=== PATIENT | female | born 1995 | race Caucasian/White ===

== ENCOUNTER 2017-02-02 07:11 | Emergency (ER) | payer BC ==
[2017-02-02 07:23] VITALS: BP 120/74
[2017-02-02] MEDS ORDERED: Cephalexin CAP* 500 MG PO ONE (07:40)
[2017-02-02] MEDS ORDERED: Phenazopyridine TAB* 100 MG PO ONE (07:41)
--- NOTE | 2017-02-02 07:49 | UC ---
Complaint Female HPI - HPI Summary HPI Summary: 21 yo female with dysuria/urgency and frequency x 3 days no f/c no n/v no back or abd pain no vag d/c or itch last year was hospitalized for pyelo - History Of Current Complaint Chief Complaint: UCGU Stated Complaint: URINARY COMPLAINT Time Seen by Provider: 02/02/17 07:23 Hx Obtained From: Patient Hx Last Menstrual Period: 01/17/17 Onset/Duration: Gradual Onset, Lasting Days Timing: Intermittent, Lasting Minutes Severity Initially: Moderate Severity Currently: None Pain Intensity: 0 - terminal dysuria only Pain Scale Used: 0-10 Numeric Character: Burning Aggravating Factor(s): Urination Alleviating Factor(s): Nothing Associated Signs And Symptoms: Negative: Fever, Back Pain, Vaginal Discharge, Nausea - Allergies/Home Medications Allergies/Adverse Reactions: Allergies Allergy/AdvReac Type Severity Reaction Status Date / Time No Known Allergies Allergy Verified 02/02/17 07:23 Home Medications: Home Medications Lisdexamfetamine (NF) [Vyvanse (NF)] 70 mg PO DAILY 02/02/17 [History Confirmed 02/02/17] Norgestimate-Ethinyl Estradiol [Sprintec 28 0.25-35 mg-Mcg] 1 tab PO DAILY 02/02 [History Confirmed 02/02/17] PMH/Surg Hx/FS Hx/Imm Hx Previously Healthy: Yes GI/ History: Other Other GI/ History: pyelo x 1 - Surgical History Surgical History: Yes Surgery Procedure, Year, and Place: knee surgeries - Family History Known Family History: Positive: Hypertension - Social History Alcohol Use: Occasionally Substance Use Type: None Smoking Status (MU): Never Smoked Tobacco - Immunization History Most Recent Influenza Vaccination: no Review of Systems Constitutional: Negative Skin: Negative Eyes: Negative ENT: Negative Respiratory: Negative Cardiovascular: Negative Gastrointestinal: Negative Genitourinary: Dysuria, Frequency, Urgency Motor: Negative Neurovascular: Negative Musculoskeletal: Negative Neurological: Negative Psychological: Negative Is Patient Immunocompromised?: No All Other Systems Reviewed And Are Negative: Yes Physical Exam Triage Information Reviewed: Yes Appearance: Well-Appearing, No Pain Distress, Well-Nourished Vital Signs: Initial Vital Signs Temp 97.8 F 02/02/17 07:18 Pulse 68 02/02/17 07:18 Resp 14 02/02/17 07:18 BP 120/74 02/02/17 07:18 Pulse Ox 100 02/02/17 07:18 Vital Signs Reviewed: Yes Eyes: Positive: Conjunctiva Clear ENT: Positive: Hearing grossly normal. Negative: Nasal congestion, Nasal drainage, Tonsillar exudate, Trismus, Muffled/hoarse voice Neck: Positive: Supple, Nontender Respiratory: Positive: Lungs clear, Normal breath sounds, No respiratory distress Cardiovascular: Positive: RRR, No Murmur Abdomen Description: Positive: Nontender, No Organomegaly. Negative: CVA Tenderness (R), CVA Tenderness (L) Bowel Sounds: Positive: Present Musculoskeletal: Positive: ROM Intact, No Edema Neurological: Positive: Alert Psychological Exam: Normal Skin Exam: Normal Complaint Female Dx - Course Course Of Treatment: uDIP showed rbcs/wbcs/protein - Differential Dx/Diagnosis Provider Diagnoses: dysuria. suspect UTI Discharge - Discharge Plan Condition: Stable Disposition: HOME Prescriptions: Cephalexin CAP* [Keflex CAP*] 500 mg PO BID #14 cap Phenazopyridine TAB* [Pyridium TAB*] 100 mg PO TID #6 tab Patient Education Materials: Dysuria (ED) Additional Instructions: recheck for fever/back pain/vomiting recheck in 2 days if not better
== END 2017-02-02 07:52 | disposition home or self-care (01) ==
LOC: UCCORT 07:11
DX: R30.0 Dysuria (principal); B96.20 Unspecified Escherichia coli [E. coli] as the cause of diseases classified elsewhere
CPT/HCPCS: 81003; 87077; 87086; 87186; 87491; 87591; 99202; A9270-GY; G0463

== ENCOUNTER 2017-07-03 17:32 | Emergency (ER) | payer BC ==
[2017-07-03 19:11] VITALS: BP 139/75
--- NOTE | 2017-07-03 20:18 | UC ---
Complaint Female HPI - HPI Summary HPI Summary: pt presents with reports of frequency, urgency and odor to urine since this am. Pt states burning with urination. mild back pain. No analgesia taken. No vaginal discharge, no vaginal odor. Pt uses BCP and condoms but requests to be tested today. Pt denies nausea, vomiting. No abd pain. pt with h/o uti, states feels similar. No h/o STD Pt's medications reviewed this visit - History Of Current Complaint Chief Complaint: UCGU Stated Complaint: UTI Time Seen by Provider: 07/03/17 20:14 Hx Obtained From: Patient Hx Last Menstrual Period: 07/01/17 ?: No Onset/Duration: Gradual Onset Timing: Intermittent - with urinateion Severity Initially: Mild Severity Currently: Moderate Pain Intensity: 7 Pain Scale Used: 0-10 Numeric Character: Sharp, Burning Aggravating Factor(s): Urination Alleviating Factor(s): Nothing Associated Signs And Symptoms: Positive: Back Pain. Negative: Fever, Vaginal Bleeding/Discharge, Vaginal Discharge, Nausea, Vomiting(# Of Episodes =) - Allergies/Home Medications Allergies/Adverse Reactions: Allergies Allergy/AdvReac Type Severity Reaction Status Date / Time No Known Allergies Allergy Verified 07/03/17 19:11 PMH/Surg Hx/FS Hx/Imm Hx Previously Healthy: Yes - Surgical History Surgical History: Yes Surgery Procedure, Year, and Place: knee surgeries - Family History Known Family History: Positive: Hypertension - Social History Occupation: Student Lives: Dormitory/Roommates Alcohol Use: Occasionally Substance Use Type: None Smoking Status (MU): Never Smoked Tobacco - Immunization History Most Recent Influenza Vaccination: no Review of Systems Constitutional: Negative Skin: Negative Genitourinary: Dysuria, Frequency, Urgency Motor: Negative All Other Systems Reviewed And Are Negative: Yes Physical Exam Triage Information Reviewed: Yes Appearance: Well-Appearing, No Pain Distress, Well-Nourished Vital Signs: Initial Vital Signs Temp 98.0 F 07/03/17 19:08 Pulse 84 07/03/17 19:08 Resp 18 07/03/17 19:08 BP 139/75 07/03/17 19:08 Pulse Ox 100 07/03/17 19:08 Vital Signs Reviewed: Yes ENT Exam: Normal ENT: Positive: Hearing grossly normal Dental Exam: Normal Neck exam: Normal Neck: Positive: Supple Respiratory Exam: Normal Respiratory: Positive: Normal breath sounds, No respiratory distress, No accessory muscle use Cardiovascular Exam: Normal Cardiovascular: Positive: RRR, No Murmur Abdominal Exam: Normal Abdomen Description: Positive: Nontender, No Organomegaly, Soft, Other: - no external lesions no odor no discharge no bleeding cultures taken - low suspicion for STD, BV or yeast. Negative: CVA Tenderness (R), CVA Tenderness (L ) Bowel Sounds: Positive: Present Musculoskeletal Exam: Normal Musculoskeletal: Positive: Strength Intact Neurological Exam: Normal Neurological: Positive: Alert Psychological Exam: Normal Skin Exam: Normal Complaint Female Dx - Course Course Of Treatment: pt with dysuria, frequency and urgency with malodor to urine since this am. pt also requesting STD testing - uses condoms. denies discharge, itching odor. pelvic exam non concerning. gc/ch, wet prep sent. + UTI - culture pending. macrobid, pyridium - Differential Dx/Diagnosis Provider Diagnoses: UTI. std testing Discharge - Discharge Plan Condition: Stable Disposition: HOME Prescriptions: Nitrofurantoin Macrocrystal [Nitrofurantoin] 100 mg PO BID #14 capsule Phenazopyridine TAB* [Pyridium 100 mg TAB*] 100 mg PO TID PRN #10 tab PRN Reason: dysuria Patient Education Materials: Urinary Tract Infection in Women (ED) Referrals: Non Staff,Doctor [Primary Care Provider] - Additional Instructions: - stay well hydrated. drink plenty of non-alcoholic, non-caffinated beverages - Take antibiotics as prescribed until gone - Okay to take pyridium for discomfort- this will make your urine blaze orange - this is normal - you also had vaginal cultures taken today. these results take 2-3 days to come back. If you need a different treatment, you will receive a call from a member of our care team. - your urine will be sent for additional testing- if you need a different antibiotic, you will receive a call contact your doctor or return with questions or concerns
[2017-07-03] MEDS ORDERED: Nitrofurantoin Macrocrystals* 50 MG CAP PO ONE (20:30)
[2017-07-03] MEDS ORDERED: Phenazopyridine TAB* 100 MG PO ONE (20:30)
== END 2017-07-03 20:47 | disposition home or self-care (01) ==
LOC: UCCORT 17:32
DX: N39.0 Urinary tract infection, site not specified (principal); Z11.3 Encounter for screening for infections with a predominantly sexual mode of transmission; Z32.02 Encounter for pregnancy test, result negative
CPT/HCPCS: 81003; 84702; 87086; 87480; 87491; 87510; 87591; 87661; 99212; A9270-GY; G0463

== ENCOUNTER 2017-08-01 12:30 | Emergency (ER) | payer BC ==
[2017-08-01 12:52] VITALS: BP 106/91
--- NOTE | 2017-08-01 12:56 | UC ---
Complaint Female HPI - HPI Summary HPI Summary: Pt presents with c/o dysuria, frequency, and urgency. Pt was seen here last week and put on macrobid. Urine culture did not grow out any bacterial organism. - History Of Current Complaint Chief Complaint: UCGU Stated Complaint: URINARY Time Seen by Provider: 08/01/17 12:41 Hx Obtained From: Patient Hx Last Menstrual Period: 2 weeks ago ?: No Onset/Duration: Gradual Onset, Lasting Days, Still Present Timing: Constant Severity Initially: Mild Severity Currently: Mild Pain Intensity: 5 Character: Dull, Burning Aggravating Factor(s): Urination Alleviating Factor(s): Meds - OTC AZO Associated Signs And Symptoms: Positive: Negative - Risk Factors Ectopic Risk Factor: Negative - Allergies/Home Medications Allergies/Adverse Reactions: Allergies Allergy/AdvReac Type Severity Reaction Status Date / Time No Known Allergies Allergy Verified 08/01/17 12:46 Home Medications: Home Medications Phenazopyridine TAB* [Pyridium 100 mg TAB*] 100 mg PO TID PRN 08/01/17 [History Confirmed 08/01/17] PMH/Surg Hx/FS Hx/Imm Hx Previously Healthy: Yes - Surgical History Surgical History: Yes Surgery Procedure, Year, and Place: knee surgeries - Family History Known Family History: Positive: Hypertension - Social History Occupation: Employed Full-time Lives: With Family Alcohol Use: Occasionally Substance Use Type: None Smoking Status (MU): Never Smoked Tobacco Have You Smoked in the Last Year: No - Immunization History Most Recent Influenza Vaccination: no Review of Systems Constitutional: Negative Skin: Negative Eyes: Negative ENT: Negative Respiratory: Negative Cardiovascular: Negative Gastrointestinal: Negative Genitourinary: Dysuria, Frequency, Urgency Motor: Negative Neurovascular: Negative Musculoskeletal: Negative Neurological: Negative Psychological: Negative Is Patient Immunocompromised?: No All Other Systems Reviewed And Are Negative: Yes Physical Exam Triage Information Reviewed: Yes Appearance: Well-Appearing Vital Signs: Initial Vital Signs Temp 98 F 08/01/17 12:48 Pulse 77 08/01/17 12:48 Resp 16 08/01/17 12:48 BP 106/91 08/01/17 12:48 Pulse Ox 100 08/01/17 12:48 Vital Signs Reviewed: Yes Eye Exam: Normal ENT Exam: Normal Neck exam: Normal Respiratory Exam: Normal Cardiovascular Exam: Normal Abdominal Exam: Normal Musculoskeletal Exam: Normal Neurological Exam: Normal Psychological Exam: Normal Skin Exam: Normal Complaint Female Dx - Course Course Of Treatment: I discussed with the pt the results of the UA and the Mycoplasma hominis and ureaplasma testing. - Differential Dx/Diagnosis Differential Diagnosis/HQI/PQRI: Urinary Tract Infection, Other Provider Diagnoses: UTI Discharge - Discharge Plan Condition: Stable Disposition: HOME Prescriptions: Cephalexin CAP* [Keflex 500 CAP*] 500 mg PO Q12H #14 cap Phenazopyridine TAB* [Pyridium 100 mg TAB*] 100 mg PO TID PRN #9 tab PRN Reason: Pain Patient Education Materials: Urinary Tract Infection in Women (ED) Referrals: [facility] [place] [facility] [Outside] Bryon Theodore MD [Medical Doctor] - Camron Puentes DO [Doctor of Osteopathy] - Non Staff,Doctor [Primary Care Provider] - Amador Ghotra MD [Medical Doctor] - Additional Instructions: Please note if symptoms do not improve or worsen, please return to clinic or follow up with the urologist that we provided. We have provided a list of names fo PCP's as you requested.
== END 2017-08-01 13:15 | disposition home or self-care (01) ==
LOC: UCCORT 12:30
DX: N39.0 Urinary tract infection, site not specified (principal); B96.20 Unspecified Escherichia coli [E. coli] as the cause of diseases classified elsewhere
CPT/HCPCS: 81003; 87077; 87086; 87186; 87798; 99212; G0463